=== PATIENT | male | born 1990 | race Caucasian/White ===

== ENCOUNTER 2017-03-03 22:46 | Emergency (ER) | payer SELFPAY ==
[~2017-03-03] VITALS: Ht 172.7 cm; Wt 81.8 kg
[2017-03-04] MEDS ORDERED: PROPARACAINE HCL 0.5% 15 ML OPHTHALMIC SOLUTION OU ONE (01:45)
[2017-03-04] MEDS ORDERED: FLUORESCEIN SODIUM 1 MG STRIP ONE (01:56)
[2017-03-04 02:53] VITALS: BP 117/69
== END 2017-03-04 02:54 | disposition home or self-care (01) ==
LOC: EMS 22:48
DX: S05.01XA Injury of conjunctiva and corneal abrasion without foreign body, right eye, initial encounter (principal); S05.02XA Injury of conjunctiva and corneal abrasion without foreign body, left eye, initial encounter; H10.9 Unspecified conjunctivitis; F12.90 Cannabis use, unspecified, uncomplicated; X58.XXXA Exposure to other specified factors, initial encounter; Y93.89 Activity, other specified; Y92.89 Other specified places as the place of occurrence of the external cause; Y99.8 Other external cause status
CPT/HCPCS: 99283